=== PATIENT | female | born 1965 | race African-American/Black ===

== ENCOUNTER → 2019-04-04 | Outpatient (CLI) | payer OTHER ==
[2019-04-02 08:29] LABS: microscopic required? NO
[2019-04-02 09:00] LABS: BASOPHIL % 1.1 % (0-2); PLATELET COUNT 276 x10^3mcL (130-400)
[2019-04-02 09:18] LABS: UA SPECIFIC GRAVITY 1.025 (1.005-1.035); urine erythrocyte NEGATIVE (NEGATIVE)
[2019-04-02 10:11] LABS: ALBUMIN 3.8 g/dL (3.4-5.0); BILIRUBIN TOTAL 0.41 mg/dL (0.20-1.00); CALCIUM 8.6 mg/dL (8.5-10.1); CHOLESTEROL/HDL RATIO 3.8; CREATININE SERUM 1.2 mg/dL (0.6-1.0); FREE T4 0.92 ng/dL (0.76-1.46); POTASSIUM SERUM 3.9 mmol/L (3.5-5.1)
== END | disposition home or self-care (01) ==
LOC: MI 08:00
DX: Z00.00 Encounter for general adult medical examination without abnormal findings (principal); M25.512 Pain in left shoulder
CPT/HCPCS: 84439; A9577